=== PATIENT | male | born 1965 | race Caucasian/White ===

== ENCOUNTER 2018-07-01 17:33 | Emergency (ER) | payer OTHER ==
[~2018-07-01] VITALS: Ht 167.6 cm; Wt 88.5 kg
[2018-07-01] MEDS ORDERED: COZAAR100 MG (17:59)
[2018-07-01] MEDS ORDERED: SIMVASTATIN20 MG (18:00)
== END 2018-07-01 22:01 | disposition home or self-care (01) ==
LOC: ER 17:33
DX: R14.3 Flatulence (principal)